=== PATIENT | female | born 1995 | race Caucasian/White ===

== ENCOUNTER 2020-07-13 13:37 | Emergency (ER) | payer OTHER ==
[~2020-07-13 13:37] MED LIST: ZOFRAN8 MG PO
[2020-07-13] MEDS ORDERED: MOTRIN600 MG PO (15:23)
== END 2020-07-13 15:43 | disposition home or self-care (01) ==
LOC: FER 13:37
DX: S93.411A Sprain of calcaneofibular ligament of right ankle, initial encounter (principal); S93.601A Unspecified sprain of right foot, initial encounter; I10 Essential (primary) hypertension; Z91.14 Patient's other noncompliance with medication regimen; W01.0XXA Fall on same level from slipping, tripping and stumbling without subsequent striking against object, initial encounter; Y92.009 Unspecified place in unspecified non-institutional (private) residence as the place of occurrence of the external cause
CPT/HCPCS: 73590; 73610; 73630

== ENCOUNTER 2020-09-01 08:51 | Emergency (ER) | payer OTHER ==
[~2020-09-01 08:51] MED LIST changes: +MOTRIN600 MG PO
[2020-09-01 09:52] LABS: BASOPHIL 0.3 % (0-2); EOSINOPHIL 0.3 % (0-5); HCT 40.9 % (37.0-47.0); HGB 13.9 g/dl (12.5-16.0); LYMPHOCYTE 8.5 % (15-48); MCV 91.1 fL (78.0-100.0); MONOCYTE 5.9 % (0-12); MPV 10.4 fL (6.0-9.5); NEUTROPHIL 84.6 % (41-80); NRBC 0; PLT 291 K/uL (150-400); RBC 4.49 M/uL (4.20-5.40); WBC 14.5 K/uL (4.0-10.5)
[2020-09-01 10:00] LABS: ALBUMIN 4.2 g/dL (3.4-5.0); BILIRUBIN - TOTAL 1.1 mg/dL (0.2-1.0); C-REACTIVE PROTEIN 0.2 mg/dL (<=0.90); CREATININE 0.64 mg/dL (0.51-0.95); GLOBULIN (CALCULATION) 3.7 g/dL; POTASSIUM 3.6 mmol/L (3.5-5.1); TOTAL PROTEIN 7.9 g/dL (6.4-8.2)
[2020-09-01] MEDS ORDERED: CLEOCIN300 MG PO (11:42)
[2020-09-01] MEDS ORDERED: IBUPROFEN800 MG PO (11:42)
[2020-09-01] MEDS ORDERED: ONDANSETRON ODT4 MG SL (11:42)
[2020-09-01] MEDS ORDERED: NORCO 5-325 TA1 EACH PO (11:42)
== END 2020-09-01 13:00 | disposition home or self-care (01) ==
LOC: FER 08:51
PROVIDERS: Emergency Medicine Emergency Medical Services
DX: N61.0 Mastitis without abscess (principal); R00.0 Tachycardia, unspecified; I10 Essential (primary) hypertension
CPT/HCPCS: 36415; 71045; 80053; 84145; 84484; 85025; 86140; 93005; J1170; J1885; J2405; J7030

== ENCOUNTER 2020-09-03 00:20 | Emergency (ER) | payer OTHER ==
[~2020-09-03 00:20] MED LIST changes: +CLEOCIN300 MG PO; +IBUPROFEN800 MG PO; +NORCO 5-325 TA1 EACH PO; +ONDANSETRON ODT4 MG SL
[2020-09-03 01:08] LABS: BASOPHIL 0.3 % (0-2); EOSINOPHIL 0.8 % (0-5); HCT 35.7 % (37.0-47.0); HGB 12.1 g/dl (12.5-16.0); MCH 30.5 pg (25.0-31.0); MCHC 33.9 g/dL (32.0-36.0); MCV 89.9 fL (78.0-100.0); MONOCYTE 7.4 % (0-12); MPV 10.1 fL (6.0-9.5); NEUTROPHIL 83.1 % (41-80); NRBC 0; PLT 227 K/uL (150-400); RBC 3.97 M/uL (4.20-5.40); RDW 12.9 % (11.5-14.0); WBC 7.6 K/uL (4.0-10.5)
[2020-09-03 01:27] LABS: ALBUMIN 3.3 g/dL (3.4-5.0); BILIRUBIN - TOTAL 0.9 mg/dL (0.2-1.0); BUN/CREAT RATIO (CALC) 16.4 RATIO; CREATININE 0.73 mg/dL (0.51-0.95); GLOBULIN (CALCULATION) 4.2 g/dL; POTASSIUM 3.4 mmol/L (3.5-5.1); TOTAL PROTEIN 7.5 g/dL (6.4-8.2)
[2020-09-03] MEDS ORDERED: KEFLEX250 MG PO (02:43)
== END 2020-09-03 03:06 | disposition home or self-care (01) ==
LOC: FER 00:20
PROVIDERS: Emergency Medicine
DX: N61.0 Mastitis without abscess (principal); Z79.899 Other long term (current) drug therapy
CPT/HCPCS: 36415; 80053; 84145; 85025; J1170; J2550; J3370; J7050

== ENCOUNTER 2021-06-21 22:31 | Emergency (ER) | payer OTHER ==
[~2021-06-21 22:31] MED LIST changes: +KEFLEX250 MG PO
[2021-06-21 23:24] LABS: CORONAVIRUS 2019 SARS-COV-2 NEGATIVE (NEGATIVE); INFLUENZA A NAA NEGATIVE (NEGATIVE)
[2021-06-21 23:44] LABS: BASOPHIL 0.2 % (0-2); EOSINOPHIL 0.7 % (0-5); HCT 41.4 % (37.0-47.0); HGB 14.4 g/dl (12.5-16.0); LYMPHOCYTE 17.3 % (15-48); MCH 32.1 pg (25.0-31.0); MCHC 34.8 g/dL (32.0-36.0); MCV 92.2 fL (78.0-100.0); MPV 9.9 fL (6.0-9.5); NEUTROPHIL 73.4 % (41-80); NRBC 0; PLT 245 K/uL (150-400); RBC 4.49 M/uL (4.20-5.40); RDW 12.2 % (11.5-14.0); WBC 12.5 K/uL (4.0-10.5)
[2021-06-22 00:06] LABS: ALBUMIN 3.9 g/dL (3.4-5.0); BILIRUBIN - TOTAL 1.3 mg/dL (0.2-1.0); BUN/CREAT RATIO (CALC) 15.7 RATIO; CREATININE 0.7 mg/dL (0.51-0.95); GLOBULIN (CALCULATION) 3.9 g/dL; MAGNESIUM 1.9 mg/dL (1.8-2.4); POTASSIUM 3.2 mmol/L (3.5-5.1); TOTAL PROTEIN 7.8 g/dL (6.4-8.2)
[2021-06-22 01:02] LABS: BILIRUBIN NEGATIVE (NEGATIVE); BLOOD TRACE-INTACT Ery/uL (NEGATIVE); CLARITY CLEAR (CLEAR); COLOR YELLOW (YELLOW); GLUCOSE (U) NORMAL (NORMAL); LEUKOCYTES NEGATIVE Leu/uL (NEGATIVE); NITRITE NEGATIVE (NEGATIVE); PROTEIN TRACE (LOW) mg/dL (NEGATIVE); SPECIFIC GRAVITY 1.015 (1.001-1.030); UROBILINOGEN 0.2 mg/dL (0.2-1.0)
[2021-06-22 01:05] LABS: AMPHETAMINES NEGATIVE (NEGATIVE); BARBITURATES NEGATIVE (NEGATIVE); ECSTASY (MDMA) NEGATIVE (NEGATIVE); MARIJUANA (THC) POSITIVE (NEGATIVE); METHADONE NEGATIVE (NEGATIVE); OPIATES NEGATIVE (NEGATIVE); OXYCODONE NEGATIVE (NEGATIVE)
[2021-06-22 01:12] LABS: AMORPHOUS URATES CRYSTALS MODERATE; MUCOUS MODERATE; URINARY RBC RARE
[2021-06-22] MEDS ORDERED: MEDROL 4MG DOSEP4 MG PO (02:14)
[2021-06-22] MEDS ORDERED: PHENERGAN25 M1 PO (02:14)
[2021-06-22] MEDS ORDERED: ONDANSETRON ODT4 MG PO (02:14)
== END 2021-06-22 02:27 | disposition home or self-care (01) ==
LOC: FER 22:31
PROVIDERS: Internal Medicine
DX: R07.89 Other chest pain (principal); R11.2 Nausea with vomiting, unspecified; I10 Essential (primary) hypertension; F17.210 Nicotine dependence, cigarettes, uncomplicated; Z20.822 Contact with and (suspected) exposure to COVID-19; Z28.310 Unvaccinated for COVID-19
CPT/HCPCS: 36415; 71045; 80053; 80305; 81001; 83690; 83735; 84145; 84484; 85025; 93005; 96372; J1100; J1170; J1885; J2405; U0002

== ENCOUNTER 2021-07-28 21:58 | Emergency (ER) | payer OTHER ==
[~2021-07-28 21:58] MED LIST changes: +MEDROL 4MG DOSEP4 MG PO; +ONDANSETRON ODT4 MG PO; +PHENERGAN25 M1 PO
[2021-07-28 23:24] LABS: BASOPHIL 0.6 % (0-2); HCT 39.2 % (37.0-47.0); HGB 13.9 g/dl (12.5-16.0); LYMPHOCYTE 31.3 % (15-48); MCHC 35.5 g/dL (32.0-36.0); MCV 93.1 fL (78.0-100.0); MONOCYTE 7.8 % (0-12); MPV 9.7 fL (6.0-9.5); NEUTROPHIL 57.7 % (41-80); NRBC 0; PLT 277 K/uL (150-400); RBC 4.21 M/uL (4.20-5.40); RDW 12.8 % (11.5-14.0); WBC 8.5 K/uL (4.0-10.5)
[2021-07-28 23:42] LABS: BUN/CREAT RATIO (CALC) 14.3 RATIO; CREATININE 0.63 mg/dL (0.51-0.95); POTASSIUM 3.2 mmol/L (3.5-5.1)
[2021-07-28 23:47] LABS: CORONAVIRUS 2019 SARS-COV-2 NEGATIVE (NEGATIVE); INFLUENZA A NAA NEGATIVE (NEGATIVE)
[2021-07-29 00:51] LABS: BILIRUBIN NEGATIVE (NEGATIVE); BLOOD 2+ Ery/uL (NEGATIVE); CLARITY CLEAR (CLEAR); COLOR YELLOW (YELLOW); GLUCOSE (U) NORMAL (NORMAL); LEUKOCYTES NEGATIVE Leu/uL (NEGATIVE); NITRITE NEGATIVE (NEGATIVE); PROTEIN NEGATIVE (NEGATIVE); SPECIFIC GRAVITY 1.015 (1.001-1.030); UROBILINOGEN 0.2 mg/dL (0.2-1.0)
[2021-07-29] MEDS ORDERED: ZPAK PO ×2 (01:12→01:27)
[2021-07-29 01:23] LABS: AMORPHOUS URATES CRYSTALS TRACE; SQUAMOUS EPITHELIAL CELLS RARE
== END 2021-07-29 01:27 | disposition home or self-care (01) ==
LOC: FER 21:58
PROVIDERS: Nurse Practitioner Family
DX: R05.9 Cough, unspecified (principal); R06.02 Shortness of breath; R51.9 Headache, unspecified; F17.200 Nicotine dependence, unspecified, uncomplicated; Z28.310 Unvaccinated for COVID-19; Z20.822 Contact with and (suspected) exposure to COVID-19
CPT/HCPCS: 36415; 71045; 80048; 81001; 85025; 85379; J0780; J1200; J1885; J2060; J2405; U0002